=== PATIENT | male | born 1935 | race Caucasian/White ===

== ENCOUNTER → 2017-08-01 | Outpatient (CLI) | payer OTHER ==
[~2017-08-01] MED LIST: ADVAIR; ASPIRIN325 PO; AUGMENTIN 875875 MG PO; CLONAZEPAM PO; FLOMAX0.4 MG PO; HYCODAN; HYDROCHLOROTH12.5 MG PO; HYDROCODONE-AP1 EAC6 PO; MINOCIN100 MG PO; MOBIC15 MG PO; NEURONTIN 300300 M1 PO; NORCO 5-325 TA1 EACH PO; NORVASC10 MG PO; PERCOCET PO; PROSCAR 5MG TABL5 M1 PO; SINGULAIR 10 MG10 MG PO; WELCHOL 625 MG625 MG PO; ZOCOR 20 MG TAB20 M1 PO; ZOCOR20 MG PO; ZOFRAN ODT4 MG PO; ZOLOFT50 MG PO
== END ==
LOC: M.ULTRA 07:21
DX: N28.1 Cyst of kidney, acquired (principal); K76.0 Fatty (change of) liver, not elsewhere classified; R16.2 Hepatomegaly with splenomegaly, not elsewhere classified; Z90.49 Acquired absence of other specified parts of digestive tract

== ENCOUNTER → 2017-08-06 | Outpatient (CLI) | payer OTHER ==
--- NOTE | 2017-08-13 09:45 | CON ---
[address] [address] CONSULTATION Name: GAL JUNE [id number] Admission: 08/06/17 Attend Phys: Fallon Bose MD Discharge: Date of : 37 Report #: [id number] THIS REPORT FOR: //name// CC: Fallon Eller DATE OF SERVICE: 08/06/2017 REASON FOR CONSULTATION: Bone lytic lesion. SUBJECTIVE: An 82-year-old male with a past medical history of hypertension, dyslipidemia, diabetes mellitus and COPD who has been having progressive pain at the lumbar area for the last 4 weeks. The pain did not radiate to the legs. The reported unsteady gait; however, there was no seizure-like activity, no focal weakness, no headaches. He has been having also yellowish mild cough. In addition to that, significant fatigue has been reported. At the Emergency Room in [place], the patient had a CT scan of the lumbar spine without contrast which showed large lytic lesion identified in the right transverse process of L2 vertebral body, causing destruction of the right transverse process, partially lytic lesion in T12, a 4 cm isostructure identified medial to the right kidney. There are also degenerative disk changes at L4-L5 and L5-S1. Also, he had a chest x-ray, showed left basal airspace disease, could be infectious. The patient was discharged home, sent with [place], which he started taking. Today, he reported the pain went down from the level 8/10-2/10. The patient has been screened for prostate cancer and he had a colonoscopy around a year ago. REVIEW OF SYSTEMS: All systems reviewed. It was negative except above. PAST MEDICAL HISTORY: Diabetes mellitus; hypertension, benign essential; COPD; dyslipidemia; osteoarthritis. PAST SURGICAL HISTORY: Both shoulder surgery, cholecystectomy, nasal surgery, tonsillectomy at age 13. He had esophagus surgery 9-month-old. SOCIAL HISTORY: He used to smoke a pipe at the age of 31 for 20 years. He does not drink alcohol. ALLERGIES: None known allergy. MEDICATIONS: Per the patient's list, metformin 500 mg p.o. daily, simvastatin 20 mg p.o. daily, montelukast 10 mg p.o. daily, finasteride 5 mg p.o. daily, amlodipine 10 mg p.o. daily, Advair 250/50 two [place] [address] CONSULTATION Name: GAL JUNE Room: [facility]#: [id number] Admission: 08/06/17 Attend Phys: Fallon Bose MD Discharge: Date of : 37 Report #: [id number] PHYSICAL EXAMINATION: VITAL SIGNS: Today blood pressure is 132/72, pulse 64, respirations 20, temperature is 97.0, saturations 96%. GENERAL: The patient was sitting in chair, was not in acute distress. LUNGS: Decreased breathing sounds bilaterally. HEART: Regular rate and rhythm; S1, S2 within normal limits. ABDOMEN: Soft, nontender, nondistended, bowel sounds positive. Old scar. EXTREMITIES: Mild 4/5 weakness in both lower extremities. No local tenderness at the lumbar area. LABORATORY DATA: Labs which was done at the Emergency Room of [place], sodium is 137, potassium 4.1, BUN is 13, creatinine 1.1, calcium is 9.1, total bilirubin 1.1, AST 64, ALT 87, alkaline phosphatase elevated 327, total protein 7.2, albumin 2.8. WBC 9.9, hemoglobin 13.5, platelets 297. IMAGING: Chest x-ray, left basal airspace disease, may be infectious. CT scan as mentioned above, lytic lesion at L2. ASSESSMENT AND PLAN: An 82-year-old male with a good performance status, ECOG of 1, who has been active, but most recently he has been having progressive lumbar pain for the last 3 weeks. Imaging at the Emergency Room showed a large lytic lesion at L2, possible small lytic lesion at T12. This process is very suspicious of malignancy. RECOMMENDATIONS: 1. I would like to obtain imaging including a PET-CT scan to evaluate whether this is the only lesion. 2. MRI of the lumbar spine with and without contrast to evaluate if there is any cord compression since the patient has been having some mild muscle weakness. 3. Based on the PET-CT scan results, we will arrange for a biopsy, whether it is the lytic lesion or the most accessible any other sites of disease. 4. We will obtain PSA, CEA and myeloma markers. Followup will be based on his biopsy results. <ELECTRONICALLY SIGNED> By: Fallon Bose MD 08/13/17 0945 [id number] Bose MD /nt
== END ==
LOC: M.RTH 10:26 → M.LAB 10:26 → M.RTH 11:00
DX: C79.51 Secondary malignant neoplasm of bone (principal); E11.9 Type 2 diabetes mellitus without complications; I10 Essential (primary) hypertension; J44.9 Chronic obstructive pulmonary disease, unspecified; E78.5 Hyperlipidemia, unspecified

== ENCOUNTER → 2017-08-07 | Outpatient (CLI) | payer OTHER ==
[2017-08-07 23:10] LABS: IgA 298 mg/dL (61-437); IgG 575 mg/dL (700-1600); IgM 38 mg/dL (15-143)
[2017-08-08 16:10] LABS: KAPPA FREE LIGHT CHAINS 24.1 mg/L (3.3-19.4); LAMBDA FREE LIGHT CHAINS 18.2 mg/L (5.7-26.3)
[2017-08-09 05:11] LABS: BETA-2-MICROGLOBULIN 3.1 mg/L (0.6-2.4)
[2017-08-09 15:12] LABS: GLOBULIN TOTAL 3.4 g/dL (2.2-3.9); M-SPIKE Not Observed g/dL (Not Observed)
== END ==
LOC: M.MRI 10:28
PROVIDERS: Radiology Radiation Oncology
DX: C79.51 Secondary malignant neoplasm of bone (principal); D49.2 Neoplasm of unspecified behavior of bone, soft tissue, and skin; M89.9 Disorder of bone, unspecified; N28.89 Other specified disorders of kidney and ureter; M54.5 Low back pain; R97.0 Elevated carcinoembryonic antigen [CEA]

== ENCOUNTER → 2017-08-13 | Outpatient (CLI) | payer OTHER ==
--- NOTE | 2017-11-13 12:05 | PATH ---
[address] [address] PATHOLOGY RPT PROCEDURE Name: HANK JUNE Room: [facility] Dena#: [id number] Admission: 08/13/17 Date of : 37 Discharge: Report #: [id number] Path Case #: [id number] LCA Accession Number: [id number] . 01 Material submitted: . L-[address] GUIDED BIOPSY . 01 Clinical history: . L2 mass CT-guided biopsy secondary malignant neoplasm 3.5 x 2 cm . 02 Diagnosis: L2 MASS, CT GUIDED BIOPSY: - METASTATIC ADENOCARCINOMA, MODERATELY DIFFEERNTIATED, INVOLVING BONE AND SKELETAL MUSCLE. SEE COMMENT. LBQ/08/15/2017 . 02 Comment: Multiple tissue cores show abundant infiltrating nests of adenocarcinoma noted to frequently show mucin within glandular lumina as well as individual cells. The malignant cells consistently show a prominent eosinophilic appearance. A panel of properly controlled immunohistochemical stains performed on A1 shows the following results: . CK7 - diffuse strong positive CK20 - focal positive AMACR (p504) - focal positive PSA - negative TTF-1 - negative CDX2 - negative Villin - negative Napsin - negative . The primary is uncertain as the immunohistochemical studies do not show a specific pattern although they are thought to include a pancreatic or possibly bladder adenocarcinoma primary. Colorectal, lung and prostatic primaries appear to be unlikely. Preliminary findings discussed with Dr. Bose at approximately 1602 on 08/14/2017. Reviewed with Dr. Gennaro Rolon who agrees with the diagnosis. (KATHERINE:db; 08/15/2017) . 02 Addendum: . Special studies report received from [facility], [address] [place] [address], [address], [place], [address], on case [id number] A2, labeled with their number [id number], dated 09/09/2017. . Referral [place] [address] PATHOLOGY RPT PROCEDURE Name: HANK JUNE [facility] [id number] Admission: 08/13/17 Date of : 37 Discharge: Report #: [id number] Path Case #: [id number] Test Performed [facility] Immune Report Card . Specimen Type Tissue - Paraffin-Embedded - L2 Mass Bx . Results [facility] Immune Report Card . PRIORITY IMMUNE MARKER RESULTS FOR UNKNOWN PRIMARY CANCER Marker Test Result Therapeutic [place] Association References PD-L1 IHC 22C3 0% Tumor - - Proportion Score . TILS RNA-Seq Low Decreased likelihood PMID:86922364 (Non- of response to anti-PD- inflamed) L1-PD1 therapy (Kirstin et al.). . CD3/CD8 IHC Minimally Associated with PMID:09490954 . Infiltrating decreased likelihood of response to checkpoint inhibitors (Tomi et al.). . Mutational DNA-Seq 4.394/Mb - - [place] (Intermediate) . Microsatellite NGS QNS - - Instability . PD-L1/L2 Copy FISH Not - - Number Amplified . SUMMARY INTERPRETATION MOLECULAR SUMMARY: This carcinoma of unknown primary site with an intermediate mutational burden is non-inflamed with a low number of CD8+ T-cells, high macrophage content, and negative expression of PD-L1 by IHC (TPS=0%; 22C3 clone). RNAseq analysis does not show a significant PD-1 axis immune checkpoint blockade. The dominant immunosuppressive mechanism in this tumor is myeloid suppression with over expression of TGFB1, CSF1R, and IDO1. Another significant immunosuppressive feature seen in this tumor was the over expression of CD39 and DPFOP1J. The adenosine receptor HBRLY0W mediates immune suppression by binding to adenosine, a suppressor of T-cell effector function. As a result of the activity of ectonucleotidases produced by neoplastic cells such as CD39 [place] [address] PATHOLOGY RPT PROCEDURE Name: HAKN JUNE Room: [facility] AMARA Fernandes#: [id number] Admission: 08/13/17 Date of : 37 Discharge: Report #: [id number] Path Case #: [id number] the conversion of ATP to AMP and eventually adenosine this immunosuppressive pathway is activated. . LIKELIHOOD OF RESPONSE BASED ON EVIDENCE IN CURRENT LITERATURE: Response to checkpoint inhibition for this patient is not favorable. Recommendation is combination immunotherapy that includes chemotherapy augmentation (see clinical trials section of the report). Additional recommendation is agents that specifically improve TILs recruitment such as the IL-2 prodrug NKTR-214 (see clinical trials section of the report). It should be noted that preliminary results for NKTR-214 in combination with nivolumab in a cohort of 36 melanoma, RCC or NSCLC reported at [facility] 2017 showed reduction of tumor size in greater than 70% of subjects with an objective response of 92% in the melanoma cohort. I could not find trials for NKTR-214 for this tumor type, but another IL-2 mutant drug ALKS 4230 is available. To the best of my knowledge no results have been presented or published for ALKS 4230. . Another potential recommendation is combination immunotherapy that includes a PD-1 axis inhibitor with a CD39/BIPUQ6J antagonist. CPI-444 (from [employer]) has been tested in 47 adults with advanced solid tumors of varying histology who had previously failed at least 5 lines of treatment. With a median follow-up time of 12w (range 2-32), the overall disease control rate (CR, [place] or SD) was 45% per RECIST. The proportion of patients with disease control were similar for pts treated with CPI-444 alone and for patients treated with CPI-444 plus atezolizumab. A single grade 3 adverse event was noted in this study. For the SAHID9X antagonist IYU7177 no results have been reported to the best of my knowledge. . Another potential recommendation is a PD-1 axis inhibitor combined with a CSF1R or TGFB1 inhibitor. As an overall summary CSF1R and TGFB1 inhibitors have had limited efficacy as single agents, but adverse events have been minimal. Among the various CSF1R or CSF1 antagonists only five, including OXD2302, [id number]-[id number], cabiralizumab, emactuzumab, and VLQ714 have reported only phase 1 toxicity studies with minimal to modest adverse events. It should be noted that the majority of these studies were completed in either tenosynovial giant cell tumors or classical Hodgkin lymphoma, with only IWY771 tested in advanced solid tumors. In this study best response was SD in 8 pts (32%) ([id number]). For the TGFB1 antagonist galunisertib results have been published as single agent therapy primarily in somewhat uncommon tumor types such as glioma or hepatocellular carcinoma with modest results (ESCALANTE 5-10% or less), but these studies to date were not in combination with a PD-1 axis inhibitor which would likely improve the results. . As for IDO1 inhibitors recent results from the Phase 3 ECHO-301/KEYNOTE-252 study combining the IDO1 inhibitor epacadostat with pembrolizumab in advanced melanoma did not show improved survival. This compares to phase 2 results for the IDO1 inhibitor [place]MS-564520 [place] [address] PATHOLOGY RPT PROCEDURE Name: HANK JUNE Room: [facility] AMARA Fernandes#: [id number] Admission: 08/13/17 Date of : 37 Discharge: Report #: [id number] Path Case #: [id number] combination with nivolumab presented at [facility] in 2017 that showed ESCALANTE of 20 to 40% in heavily pretreated cervical and bladder cancer. . . IMMUNE PHENOTYPE DETAILS Marker Rank Interpretation Function Therapies Checkpoint Blockade (PD-1/CTLA4) Cemiplimab; Nivolumab; Pembrolizumab; ABBV-181; EFDG2405; BGB-A317; BI PD-1 23 Low Co-inhibitory 387638; BMS-378121; JNJ- 80730540; AYQR1031; WFN812; TJE257; OHA880; PF- 35650234; Pne026; TSR-042 . Ipilimumab; Tremelimumab; CTLA4 25 Low Co-inhibitory ULQE7759; BMS-205761; BMS-639770; MK-1308 . Atezolizumab; Avelumab; PD-L1 46 Low Co-inhibitory Durvalumab; CA-170; CX-072; XIU937; FS118; KN035; QZ1701275; M7824 . PD-L2 40 Low Unknown . Checkpoint Blockade (Other) BTLA 8 Very Low Co-inhibitory . Relatlimab; BI 637969; LAG3 73 Moderate Co-inhibitory BMS-688672; FS118; LMC904; DVL128; MK-4280; WQAW0963; Ccm687; TSR-033 . KY3810497; AQI754; Atc119; TIM3 62 Moderate Co-inhibitory TSR-022 . VISTA 64 Moderate Co-inhibitory CA-170 . JPXXGU87 26 Low Unknown . T-cell Primed CD137 84 Moderate Co-stimulatory Urelumab; Utomilumab; PRS-343 . CD27 3 Very Low Co-stimulatory Varlilumab . CD28 13 Very [place] [address] PATHOLOGY RPT PROCEDURE Name: HANK JUNE Room: [facility] AMARA Fernandes#: [id number] Admission: 08/13/17 Date of : 37 Discharge: Report #: [id number] Path Case #: [id number] ABBV-428; ABBV-927; CD40 38 Low Co-stimulatory ADC-1013; ROP152N; CDX-1140; DA4626101; SEA-CD40 . CD40LG 5 Very Low Co-stimulatory . BMS-273308; GWN 323; GITR 33 Low Co-stimulatory JCDRCB53323; MK-4166; OMP-336B11; CXD726 . BMS-598857; VKU5886081; ICOS 36 Low Co-stimulatory JTX-2010 . ICOSLG 43 Low Co-stimulatory . ABBV-368; BMS-207501; OX40 17 Very Low Co-stimulatory QAQ0831046; . OX-40L 99 Very High Co-stimulatory . GZMB 79 Moderate Anti-tumor effector . IFNG 63 Moderate Anti-tumor effector . CD80 62 Moderate Unknown . CD86 80 Moderate Unknown . TBX21 19 Very Low Unknown . Myeloid Suppression CCL2 31 Low Immunosuppressive . CCR2 22 Low Immunosuppressive BMS-379606 . CD163 69 Moderate Immunosuppressive . CD68 90 High Immunosuppressive . Cabiralizumab; Emactuzumab; CSF1R 80 Moderate Immunosuppressive AMG 820; ARRY-382; LGX665; BC8893252; PD- 2268325; SNDX-6352 . Metabolic Immune Escape DEP1403; CPI-444; GPWQT6U 20 Low Immunosuppressive PBF-509 [place] [address] PATHOLOGY RPT PROCEDURE Name: HANK JUNE Room: [facility] AMARA Fernandes#: [id number] Admission: 08/13/17 Date of : 37 Discharge: Report #: [id number] Path Case #: [id number] . CD39 89 High Immunosuppressive . Epacadostat; Indoximod; IDO1 86 High Immunosuppressive BMS-946578; YEI8994; MB7604307; IFD232 . Pro-inflammatory Response IL1B 52 Moderate Pro-inflammatory . STAT1 82 Moderate Pro-inflammatory . Certolizumab; TNF 54 Moderate Pro-inflammatory Lenalidomide; Thalidomide . DDX58 99 Very High Immunostimulatory . MX1 89 High Immunostimulatory . CXCL10 71 Moderate Unknown . CXCR6 40 Low Unknown . Anti-inflammatory Response IL10 42 Low Anti-inflammatory . Fresolimumab; TGFB1 96 Very High Anti-inflammatory Galunisertib; M7824; JSO570 . Other Immunotherapy Markers Daratumumab; CD38 49 Low Immunostimulatory Isatuximab . GATA3 86 High Unknown . Expression Interpretation Dumont: Very High: 95-100 High: 85-94 Moderate: 50-84 Low: 20-49 Very Low: 0-19 . . TUMOR INFILTRATING LYMPHOCYTES (TILS) Marker Rank Interpretation Function CD2 33 Moderate Cytotoxic T-cells/T-regs CD3 14 Low Cytotoxic T-cells/T-regs CD4 71 Moderate Cytotoxic T-cells/T-regs CD8 15 Low Cytotoxic T-cells/T-regs FOXP3 29 Moderate Cytotoxic T-cells/T-regs KLRD1 95 High NK Cells [address] [place] [address] PATHOLOGY RPT PROCEDURE Name: HANK JUNE Room: MARY Fernandes#: [id number] Admission: 08/13/17 Date of : 37 Discharge: Report #: [id number] Path Case #: [id number] SLAMF4 16 Low NK Cells CD20 0 Low B-cells . Expression Interpretation Dumont: High: >=75 Moderate: 25-74 Low: 0-24 . . IMMUNE PHENOTYPE CLINICAL TRIALS Trial Name Phase NCT ID Location* Marker: CSF1R Immune Phenotype: Myeloid Suppression Phase I/II Study of OKN778 Single Agent 1/2 [id number] Over 200 miles or ZYL335 in Combination With ILB682 in [place], [place] Advanced Solid Tumors . A Study of AS1566837 in Combination 1 TCA09333415 Over 200 miles With Durvalumab or Tremelimumab in [place], [place] Participants With Advanced Solid Tumors . . Marker: VNLYW4Y/CD39 Immune Phenotype: Metabolic Immune Escape A Phase 1 Clinical Study of CZN1825 1 USC79738028 Over 200 miles and Durvalumab in Patients With [place], [place] Advanced Sold Malignancies . . Marker: IDO1 Immune Phenotype: Metabolic Immune Escape Epacadostat (ZTVZ80365) in Combination 1 GXR47226382 1-24 miles With Sirolimus In Advanced Malignancy [place], [place] . An Investigational Immuno-therapy Study 1/2 HWA87828517 Over 200 miles OF BMS-654705 Given in Combination [place], [place] With Both Nivolumab and Ipilimumab in Cancers That Are Advanced or Have Spread. . A Study of Epacadostat in Combination 1/2 IKX83916029 Over 200 miles With Pembrolizumab and Chemotherapy in [place], [place] Subjects With Advanced or Metastatic Solid Tumors (ECHO-207/KEYNOTE-723) . . Marker: TGFB1 Immune Phenotype: Anti-inflammatory Response NMW9372188C (M7824) in Metastatic or 1 OFR74684304 1-24 miles Locally Advanced Solid Tumors [place], [place] . A Study pf Galunisertib (EN7731906) in /2 GRT77752690 Over 200 miles Combination With Nivolumab in Advanced [place] [address] PATHOLOGY RPT PROCEDURE Name: HANK JUNE Berta Room: [facility]#: [id number] Admission: 08/13/17 Date of : 37 Discharge: Report #: [id number] Path Case #: [id number] Refractory Solid Tumors and in Recurrent Or Refractory NSCLC, or Hepatocellular Carcinoma . . Marker: CD8 (TILs) Immune Phenotype: Tumor Infiltrating Lymphocytes (TILs) A Study of the Effects of ALKS 4230 1 WON05795122 Over 200 miles On Subjects With Solid Tumors [place], [place] . . . Chemo/RT Augmentation Defactinib Combined With Pembrolizumab 1 YKW61386195 Over 200 miles . And Gemcitabine in Patients With [place], [place] Advanced Cancer . Study of Pembrolizumab and Concurrent 2 UGZ06696604 Over 200 miles . Radiation in Patients With Previously [place], [place] Treated Carcinoma of Unknown Primary . Stereotactic Body Radiotherapy (SBRT) 1 PUL16949356 Over 200 miles Plus Immunotherapy [place], [place] for Cancer . Clinical trials are displayed for over-expressed markers with therapies in clinical development that are ranked moderately high (>=75). Trials related to the recruitment of lymphocytes into the tumor are always displayed when a tumor is considered non-inflamed. Chemo/RT augmentation trials are displayed when all immunotherapy markers are negative. Clinical trial information is current as of 07/22/2017. For the most up to date information regarding a particular trial, search www.clinicaltrials.gov by NCT ID. *Location range provides an approximate distance from the physician billing zip code to the nearest location of a trial. Visit www.clinicaltrials.gov for specific trial location information. . SURGICAL PATHOLOGY REVIEW SUMMARY Submitted Pathology Report [id number] . Reviewed Pathologic Diagnosis Unknown primary / Adenocarcinoma, NOS . Sample Procurement Date 08/13/2017 [place] [address] PATHOLOGY RPT PROCEDURE Name: SLADEHANK Berta Room: [facility]#: [id number] Admission: 08/13/17 Date of : 37 Discharge: Report #: [id number] Path Case #: [id number] . Tissue Metastatic Tumor . Tumor Nuclei 50% . Reviewed Pathologic Tissue Site Musculoskeletal/ Soft Tissue / Soft tissues NOS . Summary of Received Samples for Testing Received Sample Label Type Quantity Unit Purpose 08/30/2017 [id number] 1 Unstained 1.0 Slide Testing ([id number]) FFPE Slide (Controls Adequate) . [facility] FINAL REPORT ORDER INFORMATION Order ID [id number] . Test ID [id number] . Provider Helder Watson . Indication C80.1: Malignant (primary) neoplasm, unspecified, Unknown . Ordering Facility [facility] . TEST SPECIMEN Specimen ID [id number] ([id number]) . Procurement Date 08/13/2017 . Collected 08/13/2017 . Received 08/30/2017 . Sample [place] [address] PATHOLOGY RPT PROCEDURE Name: HANK JUNE Room: [facility]#: [id number] Admission: 08/13/17 Date of : 37 Discharge: Report #: [id number] Path Case #: [id number] . Specimen Source L-[address] guided biopsy . Testing Performed PD-L1 IHC 22C3 pharmDx . Results PD-L1 22C3 Results: 0% Tumor Proportion Score - Controls Adequate - SEE INTERPRETATION . Technical Details Testing Facility- [facility] Date Technical Results Received- 08/30/2017 Slide Label- [id number] . Gross Description Received from [facility] are 15 unstained slides labeled [id number] ([id number]), accompanied by a surgical pathology report with the same number and the patient's name. These are assigned our accession number and submitted for PD-L1 evaluation per usual protocol. . Returned from [facility] are two stained glass microscope slides stained for PD-L1 and labeled as [id number]. These slides are accompanied by a [facility] technical procedure only report for PD-L1 immunohistochemistry with the same [facility] accession number, the patient's name, and our accession number. These slides and report are submitted for interpretation by [facility] pathologists. . Report electronically signed by Kash [facility] License: [id number] [facility] # [id number] 09/05/2017 17:54:28 [employer] [address] [place] [address] . About the Test Test method: This is an IHC stain. Standard techniques are used to obtain the staining characteristics of the PD-L1 IHC 22C3 PharmDx antibody on provided tissues. . Indication: PD-L1 IHC 22C3 pharmDx is a qualitative immunohistochemical (IHC) assay using Monoclonal Mouse Anti-PD-L1, Clone 22C3 intended for use in the detection of PD-L1 protein in formalin-fixed, paraffin-embedded (FFPE) tissues using EnVision FLEX visualization system on [employer] Link 48. Only membranous staining of any intensity on neoplastic cells is evaluated in this assay. The percent neoplastic cells with staining is reported. There are no PD-L1 scoring guidelines for the tumor type in this case. . Test limitations: A minimum of 100 [place] [address] PATHOLOGY RPT PROCEDURE Name: HANK JUNE Room: [facility]#: [id number] Admission: 08/13/17 Date of : 37 Discharge: Report #: [id number] Path Case #: [id number] . Regulatory: PD-L1 IHC 22C3 pharmDx is a qualitative IHC assay that is FDA-approved for in vitro diagnostic use. This test was performed at [facility] [address] [place] [id number] under the direction of Mani Gabriel MD Music Department Chair IA# [id number], and interpreted by [employer]. The results of this assay are not intended to be used as the sole means for clinical diagnosis or patient management decisions. The [facility] is certified under the Clinical Laboratory Improvement Amendments of 1988 (CLIA-88) and by the [facility] Clinical Laboratory Evaluation Program to perform high complexity clinical laboratory testing. . A complete copy of the report is on file. . Professional services performed by [employer]. at [facility], [place] [address]. Technical services performed by [employer]. at [facility] [facility] [address], [place] [address]. . (AMJ 09/10/2017) . [facility]/09/11/2017 Addendum Electronically Signed by Helder Watson MD, Pathologist Addendum #2: Special studies report received from [facility], [address] [place] [address], [address], [place], [address], on case [id number] A2, labeled with their number [id number], dated 09/09/2017. . Referral Testing Report . . Test Performed [employer] . Specimen Type Tissue - Paraffin Embedded - L2 Mass Bx . Results [facility] Comprehensive . PATIENT Name Hank June 1935 Gender Male . ORDER INFORMATION Order ID [id number] Provider Helder Watson Test ID [id number] Report Date 09/06/2017 Indication C80.1, Malignant (primary) neoplasm, unspecified, [place] [address] PATHOLOGY RPT PROCEDURE Name: HANK JUNE Room: [facility] AMARA BenitoRonen#: [id number] Admission: 08/13/17 Date of : 37 Discharge: Report #: [id number] Path Case #: [id number] TEST SPE TEST SPECIMENMEN Specimen ID [id number] ([id number]) Specimen Source L-[address] guided biopsy Collected 08/13/2017 12:00 AM Specimen Facility [facility] Received 08/30/2017 11:00 AM . . . DETECTED VARIANTS Variant Exon VAF Additional Variants of Precision Unknown Medicine Therapeutic Trials Significance CDKN2A c.241C>T (P81S) 2 0.32 X X KRAS c.35G>A (G12D) 2 0.46 X X TP53 c.734G>C (G245A) 7 0.43 X X VAF=Variant Allele Frequency . THERAPEUTIC BENEFIT SUMMARY Therapies Associated with Breast Cancer with Breast Cancer No therapeutic variant associations were identified for the tumor type tested. . Additional Precision Medicine Trials in Breast Cancer Variant Detected: CDKN2A c.241C>T (P81S) VAF:0.32 Exon:2 Protein Prediction: Deleterious/Probably Damaging . . . Trial Name Phase NCT ID Location* Histology-Independent Study of 2 [id number] Over 200 [address] Palbociclib in Patients [place] Advanced Cancer Variant Detected: KRAS c.35G>A (G12D) VAF:0.46 Exon:2 Protein Domain: Ronak family . . Trial Name Phase NCT ID Location* Eydnf-Kn-Ruxcl Study of KO-947 1 LSF39317089 Over 200 miles In Non-Hematological Malignancies [place], [place] OLAParib COmbinations 2 KMU58149749 Over [address] [facility] [address] [place] [address] PATHOLOGY RPT PROCEDURE Name: HANK JUNE Room: [facility] TIM Thong#: [id number] Admission: 08/13/17 Date of : 37 Discharge: Report #: [id number] Path Case #: [id number] Phase I Dose-Escalation Study of 1 YUS68063224 Over 200 miles VFN7524 in Patients With [place], [place] Advanced Solid Tumors Variant Detected: KRAS c.35G>A (G12D) VAF:0.46 Exon:2 Protein Domain: Ronak family . . Trial Name Phase NCT ID Location* Selumetinib and Olaparib in 1 LYC50775196 Over 200 miles Solid Tumors [place], [place] Trametinib and Navitoclax in / 2 MBS08677031 Over 200 miles Treating Patients With Advanced [place], [place] Or Metastatic Solid Tumors Variant Detected: TP53 c.734G>C (G245A) VAF:0.43 Exon:7 Protein Prediction: Deleterious/Probably Damaging . . Trial Name Phase NCT ID Location* OLAParib COmbinations 2 [id number] Over 200 miles [place], [place] Disclaimer: Clinical Trial information is current as of 07/22/2017. For the most up to date information regarding a particular trial, search www.clinicaltrials.gov by NCT ID. *Location range provides an approximate distance from the physician billing zip code to the nearest location of a trial. Visit www.clinicaltrials.gov for specific trial location information. . Potential Off-Label Therapies Potential Off-Label Therapies No therapeutic variant associations were identified for other tumor types. . POTENTIAL HEREDITARY VARIANTS FOR FOLLOW UP No potential hereditary variants were identified. . VARIANTS OF UNKNOWN THERAPEUTIC SIGNIFICANCE Mutations Variant Exon VAF Gene Type Protein Domain/Prediction CDKN2A c.241C>T (P81S) 2 0.32 Tumor Deleterious/Probably Suppressor Damaging Gene KRAS c.35G>A (G12D) 2 0.46 Oncogene Ronak family TP52 c.734G>C (G245A) 7 0.43 Tumor Deleterious/Probably Suppressor Damaging Gene . . SURGICAL PATHOLOGY REVIEW SUMMARY Submitted Pathology [place] [address] PATHOLOGY RPT PROCEDURE Name: HANK JUNE Room: [facility]#: [id number] Admission: 08/13/17 Date of : 37 Discharge: Report #: [id number] Path Case #: [id number] Reviewed Pathologic Diagnosis Unknown primary / Adenocarcinoma, NOS Sample Procurement Date 08/13/2017 Tissue Metastatic Tumor Tumor Nuclei 50% Reviewed Pathologic Tissue Site Musculoskeletal/ Soft Tissue / Bone NOS . Summary of Received Samples for Testing Received Sample Label Type Quantity Unit Purpose 08/30/2017 [id number] Unstained FFPE Slide 1.0 Slide Testing ([id number]) . . ABOUT [facility]MNIS[facility] COMPREHENSIVE OmniSeq Comprehensive SM is a next generation sequencing assay that uses multiplexed PCR-based DNA-seq and RNA-seq technologies to detect somatic variants in tumors (mutations, copy number variants and fusions) for 144 genes (118 oncogenes and 26 tumor suppressor genes) to guide cancer therapeutic management. . The DNA-seq component detects mutations (single nucleotide variants, insertions and deletions) and copy number variants in both oncogenes and tumor suppressor genes, while the RNA-seq component performs fusion analysis in oncogenes. DNA-seq mutational analysis detects sfwg-vw-ohsswsfl mutations in oncogenes using a hotspot coverage strategy while copy number analysis detects high level amplification. DNA-seq mutational analysis also detects [id number] mutations in tumor suppressor genes using a complete coding sequence coverage strategy, while copy number analysis detects homozygous deletions. The RNA-seq component is focused on fusion analysis. . [employer] [facility] SM reports mutations at the protein level based on the [employer] Knowledgebase. Standard Human Genome Variation Society (HGVS) nomenclature (http://www.hgvs.org/varnomen) is used in reporting coding DNA and predicted protein changes. . [facility] reports detected variants with therapeutic associations for the tumor type tested and for other tumor types as described by the [employer] [facility] Knowledgebase SM, which contains international and [place] practice guidelines from sources such as NCCN and EMSO, approved FDA and YON drug label content, and genomic content from multiple sources such as COSMIC, 1000 Genomes Project, dbSNP, SIFT, PolyPhen, [place] [address] PATHOLOGY RPT PROCEDURE Name: HANK JUNE Room: [facility] AMARA Fernandes#: [id number] Admission: 08/13/17 Date of : 37 Discharge: Report #: [id number] Path Case #: [id number] This information is proprietarily curated by [employer] [facility] for final clinical and genomic content. While [employer] [facility] reviews this information to help ensure accuracy, decisions about patient care and treatment must be based on the independent medical judgment of the treating physician, taking into consideration all applicable information concerning the patient's condition, such as patient and family history, physical examinations, information from other diagnostic tests, and patient preferences, in accordance with the standard of care in a given community. There is no guarantee that detection of any variant by this test will result in therapeutic efficacy or lack of efficacy. The absence of detected variants by this test does not confer a lack of therapeutic efficacy for any drug or therapy known to target genes in this test. It is possible that therapeutic implications associated with variants detected by this test are not suitable for a specific patient. . [facility] reports detected variants as having unknown therapeutic significance when they do not have a match to the ivi.ru SM, are non-synonymous, and are not reported in the 1,000 Genomes database at a prevalence of 1% or greater. In addition, variants detected in tumor suppressor genes must be deleterious in at least one protein modeling database (SIFT or PolyPhen) to be reportable as having unknown therapeutic significance. [facility] reports wild type for some genes and tumor types where appropriate, such as EGFR for NSCLC, KIT/PDGFRA for GIST, and NRAS/KRAS for colorectal cancer. When wild type analysis does not meet criteria for 95% confidence in the wild type call for a specific variant position, the results are reported as indeterminate for wild type for that specific sample. [facility] testing includes mutational analysis of 15 genes (APC, BRCA1, BRCA2, MLH1, MSH2, NF2, PTEN, RB1, RET, STK11, TP53, TSC1, TSC2, VHL, and WT1) designated by the [employer] ([employer]) as harboring potential germline mutations that may result in incidental findings related to hereditary susceptibility to disease. While [facility] does not sequence matching non-tumor tissue from tested patients, it is possible that germline mutations can be identified from tumor-only sequencing results without direct analysis of germline DNA. [facility] reports detected mutations in ACMG genes as potentially hereditary when they are identified as pathogenic or likely pathogenic in ClinVar (http://www.ncbi.nlm.nih.gov/clinvar) at the nucleotide level. If clinically applicable, these results should be further investigated by additional germline testing at the discretion of the ordering or treating physician. . For single nucleotide variants, [employer] Comprehensive SM has an assay sensitivity and PPV of 97.0% and 97.9%, respectively, for formalin fixed paraffin embedded specimens. For insertions and deletions, [employer] Comprehensive SM has an assay sensitivity and positive predictive value (PPV) of 82.0% and 96.7%, respectively. [employer] Comprehensive SM detects single nucleotide variants, insertions and deletions with 95% [place] [address] PATHOLOGY RPT PROCEDURE Name: HANK JUNE Room: [facility]#: [id number] Admission: 08/13/17 Date of : 37 Discharge: Report #: [id number] Path Case #: [id number] at a minimum VAF of 14.6% and an analytical sensitivity of 79.8% at a VAF of 5%. [employer] [facility] [facility] SM can reliably detect single nucleotide variants, insertions and deletions in samples with 20% or greater neoplastic nuclei. For copy number variants, [employer] Comprehensive SM has an assay sensitivity and PPV of 93% and 90%, respectively. [facility] Comprehensive SM can reliably detect copy number variants in samples with 50% or greater neoplastic nuclei. For gene fusions, [facility] has an assay sensitivity and PPV of 100% and 100%, respectively, for the known fusions in this assay. Knowledge of known fusion partners is required for detection by [facility] [facility] SM. Percent neoplastic nuclei has minimal to no influence on the detection of gene fusions in [facility] [facility] SM due to the RNA-based method of detection. . This test was developed and its performance characteristics determined by [employer] [facility]. The U.S. Food and Drug Administration (FDA) has not approved or cleared this test; however, FDA approval or clearance is currently not required for clinical use of this test. The results are not intended to be used as the sole means for clinical diagnosis or patient management decisions. This test should not be regarded as investigational or for research use. Envia Lá is authorized under the Clinical Laboratory Improvement Amendments and by the [facility] Clinical Laboratory Evaluation Program to perform high-complexity testing. . [id number] Report electronically signed by Heather Schilling MD 09/06/2017 03:21 PM CLIA ID: [id number] [facility] # [id number] [employer] [address] [place] [address] . A complete copy of the report is on file. . Professional services performed by [employer]. at [address], [place] [address]. Technical services performed by [employer] at [address], [place] [address]. . ([facility] 09/10/2017) . . [facility]/09/11/2017 Addendum Electronically Signed by Helder Watson MD, Pathologist . 02 Electronically signed: . Helder Watson MD, Pathologist NPI- [id number] . 01 Gross description: . The specimen is received in formalin, labeled "[place], L2 mass" and consists of multiple cores of montiel soft tissue measuring between 0.1 and 0.8 cm in length and averaging 0.2 cm [place] [address] PATHOLOGY RPT PROCEDURE Name: HANK JUNE Room: [facility] AMARA Benito.#: [id number] Admission: 08/13/17 Date of : 37 Discharge: Report #: [id number] Path Case #: [id number] hemorrhagic material. They are entirely submitted in cassettes A1-A3 with A3 consisting of an aggregate. (SDY; 08/13/2017) SYU/SYU . 02 Pathologist provided ICD-10: C79.51 . 02 CPT . 421267, T30488, Q34070 Performed at: 01 [facility] [address] [facility] [address], [place] [id number] MD Marco Cruz MD Phone: [phone] Performed at: 02 [facility] [address], [place], [place] [id number] MD Helder Watson MD Phone: [phone]
== END | disposition home or self-care (01) ==
LOC: M.CT 09:09
DX: C79.51 Secondary malignant neoplasm of bone (principal); Z79.899 Other long term (current) drug therapy; Z79.82 Long term (current) use of aspirin; Z79.891 Long term (current) use of opiate analgesic

== ENCOUNTER 2017-08-14 10:18 | Emergency (ER) | payer OTHER ==
[~2017-08-14] VITALS: Ht 180.3 cm; Wt 98.0 kg
[~2017-08-14 10:18] MED LIST changes: -FLOMAX0.4 MG PO; -PERCOCET PO; -ZOFRAN ODT4 MG PO
[2017-08-14 11:48] LABS: HEMATOCRIT 35.6 % (42.0-52.0); HEMOGLOBIN 11.8 gm/dL (14.0-18.0); MCH 28.3 pg (26.0-34.0); MCHC 33.2 g/dL (28.0-37.0); MCV 85.3 fL (80.0-100.0); MPV 8.6 fl. (7.2-11.1); NUCLEATED RBCS 0 /100WBC; PLATELET COUNT* 226 thou/uL (150-400); RBC 4.17 mil/uL (4.50-6.00); RDW-CV 13.6 % (10.5-14.5); WBC 11.2 thou/uL (4.0-11.0)
[2017-08-14 11:55] LABS: CALCIUM 8.5 mg/dL (8.5-10.1); CREATININE 0.9 mg/dL (0.6-1.3); POTASSIUM 3.9 mmol/L (3.5-5.1)
[2017-08-14 12:01] LABS: TOTAL BILIRUBIN 0.9 mg/dL (<0.1-1.0); TOTAL PROTEIN 5.8 g/dL (6.4-8.2)
[2017-08-14 12:13] LABS: ABSOLUTE LYMPHOCYTES 0.4 thou/uL (0.8-5.3); ABSOLUTE MONOCYTES 0.8 thou/uL (0.0-1.2)
[2017-08-14 12:14] LABS: PLATELET ESTIMATE ADEQUATE
[2017-08-14 12:26] LABS: URINE BLOOD NEGATIVE (Negative); URINE CLARITY CLEAR; URINE COLOR YELLOW; URINE GLUCOSE-RANDOM NEGATIVE (Negative); URINE KETONES NEGATIVE (Negative); URINE LEUKOCYTES-REFLEX NEGATIVE (Negative); URINE NITRITE-REFLEX NEGATIVE (Negative); URINE PROTEIN 1+ (Negative); URINE SPECIFIC GRAVITY >= 1.030 (1.005-1.030)
[2017-08-14 12:29] LABS: ICTOTEST (BILI CONFIRMATORY) Positive (Negative); URINE BILIRUBIN 2+ (Negative)
[2017-08-14] MEDS ORDERED: ZOFRAN ODT4 MG PO (13:00)
[2017-08-14] MEDS ORDERED: PERCOCET PO (13:00)
[2017-08-14 13:10] VITALS: BP 123/75
[2017-08-26] MEDS ORDERED: FLOMAX0.4 MG PO (15:19)
== END 2017-08-14 13:11 | disposition home or self-care (01) ==
LOC: M.ERS 10:18
PROVIDERS: Nurse Practitioner Family
DX: M54.5 Low back pain (principal); R53.1 Weakness; I10 Essential (primary) hypertension; N40.0 Benign prostatic hyperplasia without lower urinary tract symptoms; E78.00 Pure hypercholesterolemia, unspecified; Z90.89 Acquired absence of other organs; Z90.49 Acquired absence of other specified parts of digestive tract; Z85.89 Personal history of malignant neoplasm of other organs and systems; Z77.22 Contact with and (suspected) exposure to environmental tobacco smoke (acute) (chronic)

== ENCOUNTER → 2017-08-20 | Outpatient (CLI) | payer OTHER ==
[~2017-08-20] MED LIST changes: +FLOMAX0.4 MG PO; +PERCOCET PO; +ZOFRAN ODT4 MG PO
== END ==
LOC: M.LAB 10:48
DX: C79.51 Secondary malignant neoplasm of bone (principal)

== ENCOUNTER → 2017-08-20 | Outpatient (CLI) | payer OTHER ==
--- NOTE | 2017-08-20 22:00 | HEMONC ---
[address] [address] HEMATOLOGY ONCOLOGY NOTE Name: GAL JUNE Room: [facility]#: [id number] Admission: 08/20/17 Attend Phys: Fallon Bose MD Discharge: Date of : 37 Report #: [id number] THIS REPORT FOR: //name// CC: Fallon Eller DATE OF SERVICE: 08/20/2017 DIAGNOSIS: Metastatic adenocarcinoma. SUBJECTIVE: This 82-year-old male who presented today to discuss his workup for his lytic lesion. Initially, I obtained an MRI, which showed multiple bone lesions and with expansile lesion on the right transverse process at L2. Biopsy was obtained, which showed adenocarcinoma, could be a pancreatic cancer or gallbladder less likely to be a colorectal cancer or lung. The patient had also a PET/CT scan which showed extensive bone mets, liver and lung metastases. The patient reported that he had his gallbladder removed 2 years ago and the PET/CT scan did not show any pancreatic mass. REVIEW OF SYSTEMS: All systems were reviewed, was negative except above. PAST MEDICAL, SOCIAL, AND FAMILY HISTORY: Unchanged except above. PHYSICAL EXAMINATION: VITAL SIGNS: Today, blood pressure is 96/54, pulse 71, respirations 26, saturation is 94% on room air, temperature is 97 degrees Fahrenheit. GENERAL: The patient was sitting in a chair. He was not in acute distress. LUNGS: Clear to auscultations bilaterally. HEART: Regular rate and rhythm, S1, S2 within normal limits. LABORATORY DATA: Tumor marker previously showed CEA of 349, PSA 0.7. Serum electrophoresis was negative for any spike. ASSESSMENT AND PLAN: 1. An 82-year-old male who was diagnosed with a metastatic adenocarcinoma based on a lytic lesion biopsy. The patient had liver, lung and bone metastasis. At this point, the primary could be pancreatic or gallbladder; however, there is no pancreatic mass seen on the PET scan. His gallbladder has been removed 2 years ago. Either ways with these 2 possibilities, I think starting systemic chemotherapy with gemcitabine based will be reasonable until a cancer ID type test will be back, which will be ordered today. 2. We will obtain [employer] 3. I would like to refer to Dr. Scruggs to evaluate palliative radiation for the lytic lesion due to uncontrolled pain. The patient has been taking oxycodone with minimal relief. I prescribed today long-acting MS Contin 50 mg twice a day in addition to oxycodone [place] [address] HEMATOLOGY ONCOLOGY NOTE Name: ZINANiyaGAL Berta Room[facility]#: [id number] Admission: 08/20/17 Attend Phys: Fallon Bose MD Discharge: Date of : 37 Report #: [id number] 4. We will obtain CA 19-9 today and we will arrange for port placement to start chemotherapy at the [facility]. <ELECTRONICALLY SIGNED> By: Fallon Bose MD 08/20/17 2200 [id number] Bose MD /nt
== END ==
LOC: M.RTH 01:45
DX: C25.9 Malignant neoplasm of pancreas, unspecified (principal); C79.89 Secondary malignant neoplasm of other specified sites

== ENCOUNTER → 2017-08-27 | Outpatient (CLI) | payer OTHER ==
[~2017-08-27] VITALS: Ht 180.3 cm; Wt 93.0 kg
[2017-08-27 08:57] LABS: HEMATOCRIT 43.1 % (42.0-52.0); HEMOGLOBIN 13.8 gm/dL (14.0-18.0); MCH 27.8 pg (26.0-34.0); MCV 86.9 fL (80.0-100.0); MPV 9.5 fl. (7.2-11.1); RBC 4.96 mil/uL (4.50-6.00); RDW-CV 14.7 % (10.5-14.5); WBC 24.4 thou/uL (4.0-11.0)
[2017-08-27 09:07] LABS: APTT 28.1 Seconds (25.0-31.3); INR 1.2
[2017-08-27 09:13] VITALS: BP 120/64
[2017-08-27 09:15] LABS: ALBUMIN 1.9 g/dL (3.4-5.0); CALCIUM 9.5 mg/dL (8.5-10.1); CREATININE 1.6 mg/dL (0.6-1.3); POTASSIUM 5.5 mmol/L (3.5-5.1); TOTAL BILIRUBIN 2.7 mg/dL (<0.1-1.0); TOTAL PROTEIN 6.6 g/dL (6.4-8.2)
[2017-08-27 12:30] VITALS: BP 118/68
[2017-08-27 13:50] VITALS: BP 124/69
== END | disposition home or self-care (01) ==
LOC: M.INT 08-23 11:30 → M.MRI 06:53
PROVIDERS: Radiology Diagnostic Radiology
DX: Z45.2 Encounter for adjustment and management of vascular access device (principal); C41.9 Malignant neoplasm of bone and articular cartilage, unspecified; I10 Essential (primary) hypertension; E78.00 Pure hypercholesterolemia, unspecified; N40.0 Benign prostatic hyperplasia without lower urinary tract symptoms; Z90.49 Acquired absence of other specified parts of digestive tract; Z98.890 Other specified postprocedural states; Z87.891 Personal history of nicotine dependence; Z79.899 Other long term (current) drug therapy; Z79.01 Long term (current) use of anticoagulants